=== PATIENT | male | born 1995 | race Caucasian/White ===

== ENCOUNTER 2022-11-11 20:23 | Emergency (ER) | payer OTHER ==
[~2022-11-11] VITALS: Ht 190.5 cm; Wt 113.0 kg
[2022-11-11 21:41] VITALS: BP 135/75
== END 2022-11-11 21:43 | disposition home or self-care (01) ==
LOC: ED 20:23
DX: S60.455A Superficial foreign body of left ring finger, initial encounter (principal); W45.8XXA Other foreign body or object entering through skin, initial encounter
CPT/HCPCS: 99283